=== PATIENT | female | born 1995 | race African-American/Black ===

== ENCOUNTER 2022-10-19 22:08 | Emergency (ER) | payer OTHER, SELFPAY ==
[2022-10-19] MEDS ORDERED: Ibuprofen 800 MG TAB ONE (23:57)
[2022-10-19] MEDS ORDERED: HYDROcodone/Acetaminophen 5/325 mg Tablet ONE (23:57)
[2022-10-20] MEDS ORDERED: Bacitracin 1 PK ONE (00:31)
== END 2022-10-20 00:30 | disposition home or self-care (01) ==
LOC: ERS 22:08
DX: S80.12XA Contusion of left lower leg, initial encounter (principal); S80.812A Abrasion, left lower leg, initial encounter; V43.52XA Car driver injured in collision with other type car in traffic accident, initial encounter

== ENCOUNTER 2022-11-30 15:37 | Emergency (ER) | payer SELFPAY ==
[2022-11-30] MEDS ORDERED: Lidocaine 1% w/Epinephrine 1:100K 20 ML VIAL ONE (19:23)
== END 2022-11-30 20:15 | disposition home or self-care (01) ==
LOC: ERS 15:37
DX: N61.1 Abscess of the breast and nipple (principal); L30.9 Dermatitis, unspecified
CPT/HCPCS: 10060

== ENCOUNTER 2024-12-20 14:14 | Inpatient (IN) | payer SELFPAY ==
[2024-12-20 16:17] LABS: #Basophils Less than 0.03 10x3/uL (0.0-0.2); #Eosinophils Less than 0.03 10x3/uL (0.0-0.7); #Monocytes 0.49 10x3/uL (0.11-0.59); #Neutrophils 7.31 10x3/uL (1.40-6.50); %Basophils 0.2 % (0.0-1.0); %Eosinophils 0.1 % (0.0-10.0); %Lymphocytes 12.2 % (21.0-51.0); %Monocytes 5.5 % (0.0-10.0); %Neutrophils 81.8 % (42.0-75.0); Hematocrit 47.0 % (36.0-47.0); Hemoglobin 15.9 g/dL (12.0-16.0); Mean Corpuscular Hemoglobin 27.0 pg (27.0-31.0); Mean Corpuscular Volume 79.8 fL (78.0-98.0); Platelet Count 330 10x3/uL (130-400); Red Blood Cell (RBC) Count 5.89 mill/uL (4.20-5.40); White Blood Cell (WBC) Count 8.94 10x3/uL (4.8-10.8)
[2024-12-20 16:19] LABS: Actual Bicarbonate (HCO3v) 19.9 mEq/L (22-28); Analyzer IN Cardio ER; Base Excess -5.6 mEq/L (-2.0 to +3.0); Calcium, Ionized (venous) 1.20 mmol/L (1.16-1.32); Chloride (VBG) 101 mmol/L (98-106); Hematocrit-VBG 51 % (36.0-47.0); Hemoglobin (Hb) 17.3 g/dL (11.7-15.5); Potassium (VBG) 4.62 mmol/L (3.70-5.30); Sodium 141 mmol/L (133-146)
[2024-12-20 16:54] LABS: ALT (SGPT) 15 U/L (Less than 34); AST (SGOT) 16 U/L (11-34); Albumin 4.4 g/dL (3.1-4.5); Alkaline Phosphatase 107 U/L (40-110); Anion Gap 22 mmol/L (10-20); BUN (Urea Nitrogen) 21 mg/dL (7.0-18.7); Bilirubin, Total 0.5 mg/dL (0.3-1.2); Calc. Creatinine Clearance 0 mL/min (70-130); Calcium 10.3 mg/dL (7.8-10.44); Carbon Dioxide 20 mmol/L (22-29); Chloride 101 mmol/L (98-107); Globulin 4.7 g/dL (2.4-3.5); Glucose 546 mg/dL (70-105); Magnesium 2.0 mg/dL (1.6-2.6); Potassium 4.7 mmol/L (3.5-5.1); Sodium 138 mmol/L (136-145)
[2024-12-20 17:12] LABS: Pregnancy Test - Urine (BHCG) Negative (Negative); Pregu Control Background? CLEAR/WHITE (CLR/WHITE); Pregu Control Bar Appear? YES (CONTROL BAR)
[2024-12-20 17:14] LABS: Bacteria/HPF 4+ HPF (None Seen); CAUTI Indications for Culture Alt mental st,lethar; Glucose, Urine (Dipstick) Greater than 1000 mg/dL (Negative); Leukocyte Negative Leu/uL (Negative); Protein, Urine (Dipstick) Negative (Neg-Trace); RBC/HPF None Seen HPF (0-3); Specific Gravity, Urine 1.026 (1.002-1.036)
[2024-12-20 17:15] LABS: Urine Culture Reflex Yes Yes
[2024-12-20 17:20] LABS: MONO NEGATIVE CONTROL ZONE White (Negative) (White); MONO POSITIVE CONTROL Pink Line (Positive) (PINK/RED); Mononucleosis NEGATIVE (NEGATIVE)
[2024-12-20] MEDS ORDERED: INSULIN REGULAR IN 0.9 % NACL 100 ML ONE (17:23)
[2024-12-20] MEDS ORDERED: Acetaminophen 325 MG TAB PO PRN (18:10)
[2024-12-20] MEDS ORDERED: NS 0.9% w/ 20 MEQ KCL 1,000 ML IV PRN ×2 (18:10)
[2024-12-20] MEDS ORDERED: Dextrose 50% Abboject 50 ML SYRINGE SLOW IVP PRN (18:10)
[2024-12-20] MEDS ORDERED: Ondansetron PF 4 MG/2 ML Vial IVP PRN (18:10)
[2024-12-20] MEDS ORDERED: INSULIN REGULAR IN 0.9 % NACL 100 ML IVPB SCH (18:15)
[2024-12-20] MEDS ORDERED: Potassium Chloride 20 MEQ in Premix 1 BAG IVPB PRN (18:30)
[2024-12-20] MEDS ORDERED: PHOS-NAK 1 PKT PACK PO PRN (18:30)
[2024-12-20] MEDS ORDERED: Magnesium 2 GM/50 ML(in water) 2 GM in Premix 1 BAG IVPB PRN (18:30)
[2024-12-20 19:24] LABS: Anion Gap 21 mmol/L (10-20); BUN (Urea Nitrogen) 18 mg/dL (7.0-18.7); Calc. Creatinine Clearance 0 mL/min (70-130); Calcium 9.6 mg/dL (7.8-10.44); Carbon Dioxide 21 mmol/L (22-29); Chloride 105 mmol/L (98-107); Glucose 374 mg/dL (70-105); Potassium 4.4 mmol/L (3.5-5.1); Sodium 143 mmol/L (136-145)
[2024-12-20] MEDS ORDERED: NS 0.9% w/ 20 MEQ KCL 1,000 ML ONE (19:57)
[2024-12-20] MEDS: D5 1/2 NS w/20 mEq KCL 1,000 ML IV PRN (21:16)
[2024-12-20] MEDS: Nystatin 500,000 UNITS/5 ML UDCUP SSW SCH (21:18)
[2024-12-20] MEDS: Ciprofloxacin 500 MG TAB PO SCH (21:32)
[2024-12-20 21:39] VITALS: BMI 31.4
[2024-12-20] MEDS: Electrolyte Replacement Protocol 1 EACH IVPB ONE (23:26)
[2024-12-20 23:27] LABS: Anion Gap 16 mmol/L (10-20); BUN (Urea Nitrogen) 13 mg/dL (7.0-18.7); Calc. Creatinine Clearance 189 mL/min (70-130); Calcium 8.8 mg/dL (7.8-10.44); Carbon Dioxide 20 mmol/L (22-29); Chloride 112 mmol/L (98-107); Glucose 186 mg/dL (70-105); Potassium 4.6 mmol/L (3.5-5.1); Sodium 143 mmol/L (136-145)
[2024-12-21 03:06] LABS: #Basophils 0.03 10x3/uL (0.0-0.2); #Eosinophils 0.12 10x3/uL (0.0-0.7); #Monocytes 1.03 10x3/uL (0.11-0.59); #Neutrophils 3.73 10x3/uL (1.40-6.50); %Basophils 0.4 % (0.0-1.0); %Eosinophils 1.7 % (0.0-10.0); %Lymphocytes 32.1 % (21.0-51.0); %Monocytes 14.2 % (0.0-10.0); %Neutrophils 51.5 % (42.0-75.0); Hematocrit 38.2 % (36.0-47.0); Hemoglobin 12.4 g/dL (12.0-16.0); Mean Corpuscular Hemoglobin 26.9 pg (27.0-31.0); Mean Corpuscular Volume 82.9 fL (78.0-98.0); Platelet Count 246 10x3/uL (130-400); Red Blood Cell (RBC) Count 4.61 mill/uL (4.20-5.40); White Blood Cell (WBC) Count 7.25 10x3/uL (4.8-10.8)
[2024-12-21 03:42] LABS: Anion Gap 12 mmol/L (10-20); BUN (Urea Nitrogen) 10 mg/dL (7.0-18.7); Calc. Creatinine Clearance 200 mL/min (70-130); Calcium 8.9 mg/dL (7.8-10.44); Carbon Dioxide 21 mmol/L (22-29); Chloride 114 mmol/L (98-107); Glucose 140 mg/dL (70-105); Potassium 3.7 mmol/L (3.5-5.1); Sodium 143 mmol/L (136-145)
[2024-12-21] MEDS ORDERED: Glucagon 1 MG/ML KIT IM PRN (04:09)
[2024-12-21] MEDS ORDERED: Dextrose 50% Abboject 50 ML SYRINGE SLOW IVP PRN (04:09)
[2024-12-21] MEDS: Insulin Glargine 30 UNITS/0.3 ML VIAL SC SCH (04:40)
[2024-12-21] MEDS: Enoxaparin 40 MG (0.4 mL) SYRINGE SC SCH (08:48)
[2024-12-21 09:16] VITALS: BMI 31.4
[2024-12-21 12:46] VITALS: BP 129/87; TEMP 97.8
[2024-12-22] MEDS ORDERED: Insulin Glargine 30 UNITS/0.3 ML VIAL SC SCH (09:00)
== END 2024-12-21 14:17 | disposition home or self-care (01) | DRG 638 ==
LOC: ERS 14:14 → ERHOLD 18:07 → IMCU/EMU 20:57 → T4-B 12-21 07:35
PROVIDERS: ADMIT Internal Medicine; ATTEND Student in an Organized Health Care Education/Training Program
DX: E11.10 Type 2 diabetes mellitus with ketoacidosis without coma (principal); N39.0 Urinary tract infection, site not specified; R13.10 Dysphagia, unspecified; Z79.84 Long term (current) use of oral hypoglycemic drugs; Z98.890 Other specified postprocedural states; Z79.4 Long term (current) use of insulin
CPT/HCPCS: 36415; 36416; 71046; 80048; 80053; 81001; 81025; 82010; 82805; 83036; 83735; 84100; 84443; 85025; 86308; 87086; 96360; 96361; 96365; 96366; J1650; J1815; J3480